=== PATIENT | male | born 1955 | race Caucasian/White ===

== ENCOUNTER 2021-02-11 10:17 | Emergency (ER) | payer OTHER, MEDICARE ==
[2021-02-11] MEDS ORDERED: Albuterol/Ipratropium 3.0-0.5 MG/3 ML Neb Soln ONE (10:24)
[2021-02-11 10:27] VITALS: BP 189/81; PULSE 114
[2021-02-11] MEDS ORDERED: Nitroglycerin/D5W 25 MG/250 ML BOTTLE ONE (10:27)
[2021-02-11] MEDS ORDERED: Nitroglycerin 0.4 MG Tab.SL ONE (10:27)
[2021-02-11] MEDS ORDERED: Nitroglycerin/D5W 25 MG/250 ML BOTTLE IV SCH (10:30)
[2021-02-11] MEDS ORDERED: Furosemide 20 MG/2 ML VIAL IVPUSH ONE (10:39)
[2021-02-11] MEDS ORDERED: Morphine 4 MG/ML Syringe IVPUSH ONE (10:46)
[2021-02-11] MEDS ORDERED: Morphine 4 MG/ML Syringe ONE (10:47)
--- NOTE | 2021-02-11 10:56 | CR ---
Chest: Portable view of the chest was obtained. Comparison: No prior chest imaging is available. Diffuse increased density is seen throughout both sides of the chest. Heart size and mediastinum are normal. Right-sided infusion port is seen. Bony structures show nothing acute. Impression: 1. Diffuse increased density on both sides of the chest. Findings could represent diffuse pulmonary vascular congestion as well as severe COVID pneumonia if patient has correlating symptoms. Other diffuse pneumonia is also within the differential. Diagnostic code #3
[2021-02-11] MEDS ORDERED: cefTRIAXone 2 GM in Sodium Chloride 0.9% 100 ML IV SCH (11:00)
--- NOTE | 2021-02-11 11:16 | EDM.PDOC ---
ED HPI GENERAL MEDICAL PROBLEM - General Chief Complaint: Respiratory Problem Stated Complaint: froilan amb Time Seen by Provider: 02/11/21 10:17 - History of Present Illness INITIAL COMMENTS - FREE TEXT/NARRATIVE: 65-year-old male brought in with severe respiratory distress and hypoxia by EMS. The patient was in route from [facility] to the [facility] in [facility] for a second opinion on his cancer. The patient is currently getting chemotherapy for what sounds like end-stage liver and pancreatic cancer. It is uncertain what the primary is. They have been told by oncology that they have no long-term cure options and they may be able to shrink the tumor up with chemotherapy and slow it down a little bit which is what they have done. Currently the trip went from 13 cm tumor to a 8 mm tumor. The patient has had "flash pulmonary edema" associated with chemotherapy in the past however the patient has not had chemotherapy in 3 weeks. The patient did not take his Lasix today normally takes 40 mg daily because of the road trip. He also did not bring his oxygen because he did not need it. Has noticed increased edema in his lower extremities over the last several days. EMS picked up the patient as it was no longer he was no longer able to breathe on his own. They attempted BiPAP and did not have much success getting his O2 saturation out of the 70s. He denies chest pain with this. Upon arrival here the patient adamantly denies wanting a breathing tube or put on mechanical ventilation. He did consent to continued BiPAP support. - Related Data Allergies Allergy/AdvReac Type Severity Reaction Status Date / Time No Known Allergies Allergy Verified 02/11/21 10:27 Home Meds: Home Meds Aspirin 325 mg PO DAILY 09/25/20 [History] Furosemide 60 mg PO DAILY 09/25/20 [History] Insulin Degludec [Tresiba] 10 unit SQ BEDTIME 09/25/20 [History] Lansoprazole [Prevacid] 30 mg PO DAILY PRN 09/25/20 [History] Metoprolol Succinate 50 mg PO DAILY 09/25/20 [History] Potassium Chloride 20 meq PO DAILY 09/25/20 [History] atorvaSTATin [Lipitor] 10 mg PO DAILY 09/25/20 [History] Fluticasone Propionate [Flonase Allergy Relief] 1 spray NASBOTH DAILY PRN 10/27/20 [History] Insulin Aspart [NovoLOG] 1 injection SUBCUT ASDIRECTED 10/27/20 [History] Hydrocodone/Acetaminophen [Vicodin Hp 10-300 mg Tablet] 1 each PO Q6H PRN #6 tablet 10/29/20 [Rx] traZODone 100 mg PO BEDTIME 01/22/21 [History] levoFLOXacin [Levaquin] 750 mg PO Q24H 5 Days #5 tablet 01/23/21 [Rx] Spironolactone [Aldactone] 25 mg PO DAILY #30 tab 02/11/21 [Rx] Past Medical History HEENT History: Reports: Other (See Below) Other HEENT History: wears glasses, top and bottom dentures Cardiovascular History: Reports: High Cholesterol, Hypertension, PVD, Stents Respiratory History: Reports: None Other Respiratory History: 45 year smoking hx, presently smokes alittle over 1 PPD Gastrointestinal History: Reports: GERD Genitourinary History: Reports: None Musculoskeletal History: Reports: None Neurological History: Reports: None Psychiatric History: Reports: None Endocrine/Metabolic History: Reports: Diabetes, Type II, Obesity/BMI 30+ Hematologic History: Reports: None Immunologic History: Reports: None Oncologic (Cancer) History: Reports: Liver Dermatologic History: Reports: None - Infectious Disease History Infectious Disease History: Reports: Chicken Pox, Measles, Mumps - Past Surgical History Head Surgeries/Procedures: Reports: None HEENT Surgical History: Reports: None Cardiovascular Surgical History: Reports: Vascular Surgery Other Cardiovascular Surgeries/Procedures: left femerol popiteal bypass, stent placement to right leg Respiratory Surgical History: Reports: None GI Surgical History: Reports: None Male Surgical History: Reports: None Endocrine Surgical History: Reports: None Neurological Surgical History: Reports: None Musculoskeletal Surgical History: Reports: None Oncologic Surgical History: Reports: None Dermatological Surgical History: Reports: None Social & Family History - Family History Family Medical History: No Pertinent Family History - Tobacco Use Tobacco Use Status *Q: Current Status Unknown - Caffeine Use Caffeine Use: Reports: Coffee, Energy Drinks, Soda Caffeine Use Comment: 3-4 cups of coffee daily - Recreational Drug Use Recreational Drug Use: No ED ROS GENERAL - Review of Systems Review Of Systems: See Below Constitutional: Reports: No Symptoms HEENT: Reports: No Symptoms Respiratory: Reports: Shortness of Breath. Denies: Cough, Sputum Cardiovascular: Reports: Dyspnea on Exertion, Edema. Denies: Chest Pain Endocrine: Reports: No Symptoms GI/Abdominal: Reports: No Symptoms : Reports: No Symptoms Musculoskeletal: Reports: No Symptoms Neurological: Reports: No Symptoms ED EXAM, GENERAL - Physical Exam Exam: See Below Exam Limited By: Other (Shortness of breath and being on BiPAP but he answers simple questions without difficulty) General Appearance: Moderate Distress (Secondary to hypoxia breathing difficulties) Head: Atraumatic, Normocephalic Neck: Normal Inspection, Supple, Non-Tender, Full Range of Motion. No: Lymphadenopathy (L), Lymphadenopathy (R) Respiratory/Chest: Respiratory Distress, Crackles. No: No Respiratory Distress, Normal Breath Sounds Cardiovascular: Regular Rate, Rhythm, No Murmur, Other (Severe edema in bilateral lower extremities) GI/Abdominal: Normal Bowel Sounds, Soft, Non-Tender Back Exam: Normal Inspection. No: CVA Tenderness (L), CVA Tenderness (R) Extremities: Pedal Edema (Severe extending up the legs) Course - Vital Signs Last Recorded V/S: Last Vital Signs Temp 36.2 C 02/11/21 10:21 Pulse 114 H 02/11/21 10:21 Resp 34 H 02/11/21 10:21 BP 189/81 H 02/11/21 10:21 Pulse Ox 100 02/11/21 13:06 - Orders/Labs/Meds Orders: Active Orders 24 hr Category Date Time Status RT BiPAP/CPAP [RC] ASDIRECTED Care 02/11/21 11:04 Active BLOOD CULTURE [MREF] Stat Lab 02/11/21 10:35 Received BLOOD CULTURE [MREF] Stat Lab 02/11/21 10:50 Received Nitroglycerin/D5W [Nitroglycerin 25 MG/D5W 250 ML] Med 02/11/21 10:30 Active 25 mg in 250 ml IV TITRATE cefTRIAXone [Rocephin] 2 gm Med 02/11/21 11:00 Active Sodium Chloride 0.9% [Normal Saline] 100 ml IV Q24H Blood Culture x2 Reflex Set [OM.PC] Stat Oth 02/11/21 10:29 Ordered Medication Orders Nitroglycerin/Dextrose (Nitroglycerin 25 Mg/D5w 250 Ml) 25 mg in 250 mls @ 3 mls/hr IV TITRATE ORI; Protocol Last Titration: 02/11/21 11:47 Dose: 0 mcg/min, 0 mls/hr Documented by: Titration: 02/11/21 11:25 Dose: 5 mcg/min, 3 mls/hr Documented by: Titration: 02/11/21 11:15 Dose: 10 mcg/min, 6 mls/hr Documented by: Titration: 02/11/21 10:41 Dose: 15 mcg/min, 9 mls/hr Documented by: Titration: 02/11/21 10:37 Dose: 10 mcg/min, 6 mls/hr Documented by: Admin: 02/11/21 10:32 Dose: 5 mcg/min, 3 mls/hr Documented by: HERMMIC Ceftriaxone Sodium 2 gm/ (Sodium Chloride) 100 mls @ 200 mls/hr IV Q24H ORI Last Admin: 02/11/21 11:48 Dose: 200 mls/hr Documented by: HERMMIC Labs: Laboratory Tests 02/11/21 02/11/21 02/11/21 Range/Units 10:35 10:35 10:35 WBC 5.47 (4.23-9.07) K/mm3 RBC 3.26 L (4.63-6.08) M/mm3 Hgb 9.8 L (13.7-17.5) gm/dl Hct 32.5 L (40.1-51.0) % MCV 99.7 H (79.0-92.2) fl MCH 30.1 (25.7-32.2) pg MCHC 30.2 L (32.2-35.5) g/dl RDW Std Deviation 91.0 H (35.1-43.9) fL Plt Count 192 (163-337) K/mm3 MPV 12.0 (9.4-12.3) fl Neut % (Auto) 45.9 (34.0-67.9) % Lymph % (Auto) 28.5 (21.8-53.1) % Monroe % (Auto) 19.6 H (5.3-12.2) % Eos % (Auto) 4.2 (0.8-7.0) Baso % (Auto) 1.3 H (0.1-1.2) % Neut # (Auto) 2.51 (1.78-5.38) K/mm3 Lymph # (Auto) 1.56 (1.32-3.57) K/mm3 Monroe # (Auto) 1.07 H (0.30-0.82) K/mm3 Eos # (Auto) 0.23 (0.04-0.54) K/mm3 Baso # (Auto) 0.07 (0.01-0.08) K/mm3 PT 11.9 (9.7-12.0) SECONDS INR 1.11 APTT 23.4 (21.7-31.4) SECONDS Sodium 136 (136-145) mEq/L Potassium 3.5 (3.5-5.1) mEq/L Chloride 101 (98-107) mEq/L Carbon Dioxide 26 (21-32) mEq/L Anion Gap 12.5 (5-15) BUN 12 (7-18) mg/dL Creatinine 0.9 (0.7-1.3) mg/dL Est Cr Clr Drug Dosing 80.74 mL/min Estimated GFR (MDRD) > 60 (>60) mL/min BUN/Creatinine Ratio 13.3 L (14-18) Glucose 233 H (70-99) mg/dL Lactic Acid (0.4-2.0) mmol/L Calcium 8.4 L (8.5-10.1) mg/dL Total Bilirubin 0.8 (0.2-1.0) mg/dL AST 55 H (15-37) U/L ALT 35 (16-63) U/L Alkaline Phosphatase 173 H (46-116) U/L Troponin I < 0.017 (0.00-0.056) ng/mL NT-Pro-B Natriuret Pep (0-125) pg/mL Total Protein 7.5 (6.4-8.2) g/dl Albumin 3.3 L (3.4-5.0) g/dl Globulin 4.2 gm/dL Albumin/Globulin Ratio 0.8 L (1-2) SARS-CoV-2 RNA (KIMANI) (NEGATIVE) 02/11/21 02/11/21 02/11/21 Range/Units 10:35 10:50 13:37 WBC (4.23-9.07) K/mm3 RBC (4.63-6.08) M/mm3 Hgb (13.7-17.5) gm/dl Hct (40.1-51.0) % MCV (79.0-92.2) fl MCH (25.7-32.2) pg MCHC (32.2-35.5) g/dl RDW Std Deviation (35.1-43.9) fL Plt Count (163-337) K/mm3 MPV (9.4-12.3) fl Neut % (Auto) (34.0-67.9) % Lymph % (Auto) (21.8-53.1) % Monroe % (Auto) (5.3-12.2) % Eos % (Auto) (0.8-7.0) Baso % (Auto) (0.1-1.2) % Neut # (Auto) (1.78-5.38) K/mm3 Lymph # (Auto) (1.32-3.57) K/mm3 Monroe # (Auto) (0.30-0.82) K/mm3 Eos # (Auto) (0.04-0.54) K/mm3 Baso # (Auto) (0.01-0.08) K/mm3 PT (9.7-12.0) SECONDS INR APTT (21.7-31.4) SECONDS Sodium (136-145) mEq/L Potassium (3.5-5.1) mEq/L Chloride (98-107) mEq/L Carbon Dioxide (21-32) mEq/L Anion Gap (5-15) BUN (7-18) mg/dL Creatinine (0.7-1.3) mg/dL Est Cr Clr Drug Dosing mL/min Estimated GFR (MDRD) (>60) mL/min BUN/Creatinine Ratio (14-18) Glucose (70-99) mg/dL Lactic Acid 1.1 (0.4-2.0) mmol/L Calcium (8.5-10.1) mg/dL Total Bilirubin (0.2-1.0) mg/dL AST (15-37) U/L ALT (16-63) U/L Alkaline Phosphatase (46-116) U/L Troponin I (0.00-0.056) ng/mL NT-Pro-B Natriuret Pep 1988 H (0-125) pg/mL Total Protein (6.4-8.2) g/dl Albumin (3.4-5.0) g/dl Globulin gm/dL Albumin/Globulin Ratio (1-2) SARS-CoV-2 RNA (KIMANI) Negative (NEGATIVE) Meds: Medications Generic Name Dose Route Start Last Admin Trade Name Freq PRN Reason Stop Dose Admin Nitroglycerin/Dextrose 25 mg in 250 mls @ 3 mls/hr 02/11/21 10:30 02/11/21 11:47 Nitroglycerin 25 Mg/D5w 250 Ml IV 0 mcg/min TITRATE ORI 0 mls/hr Titration Protocol 5 MCG/MIN Ceftriaxone Sodium 2 gm/ 100 mls @ 200 mls/hr 02/11/21 11:00 02/11/21 11:48 Sodium Chloride IV 200 mls/hr Q24H ORI Administration Discontinued Medications Generic Name Dose Route Start Last Admin Trade Name Mykelq PRN Reason Stop Dose Admin Albuterol/Ipratropium Confirm 02/11/21 10:24 Albuterol/Ipratropium 3.0-0.5 Mg/3 Ml Neb Soln Administered 02/11/21 10:25 Dose 3 ml .ROUTE .STK-MED ONE Furosemide 60 mg 02/11/21 10:39 02/11/21 10:47 Furosemide 20 Mg/2 Ml Vial IVPUSH 02/11/21 10:40 60 mg ONETIME ONE Administration Nitroglycerin/Dextrose Confirm 02/11/21 10:27 02/11/21 10:43 Nitroglycerin 25 Mg/D5w 250 Ml Administered 02/11/21 10:28 Not Given Dose 25 mg in 250 mls @ as directed .ROUTE .STK-MED ONE Morphine Sulfate 4 mg 02/11/21 10:46 02/11/21 10:49 Morphine 4 Mg/Ml Syringe IVPUSH 02/11/21 10:47 4 mg ONETIME ONE Administration Morphine Sulfate Confirm 02/11/21 10:47 02/11/21 11:22 Morphine 4 Mg/Ml Syringe Administered 02/11/21 10:48 Not Given Dose 4 mg .ROUTE .STK-MED ONE Nitroglycerin Confirm 02/11/21 10:27 Nitroglycerin 0.4 Mg Tab.Sl Administered 02/11/21 10:28 Dose 0.8 mg .ROUTE .STK-MED ONE Potassium Chloride 20 meq 02/11/21 16:35 Potassium Chloride 20 Meq Tab.Er PO 02/11/21 16:36 ONETIME ONE - Re-Assessments/Exams Free Text/Narrative Re-Assessment/Exam: 02/11/21 10:56 The patient presents to the emergency room in respiratory extremis. Patient has a history of "flash pulmonary edema" the patient is getting chemotherapy right now for a combination of pancreatic liver cancer they are unsure what the primary actually is. The patient's is driving him to [facility] for a second opinion when he developed severe shortness of breath. EMS was called to intercept and bring him to the hospital. Patient has a complicated medical history is diabetic is got vascular disease he had stents in his heart and the way I understand in his legs. Over the last several days they have noticed increased edema in the lower extremities. The patient was attempted on BiPAP with minimal success by EMS we are reattempting this along with IV nitro morphine. The patient is alert and oriented and denies intubation. When he is advised that he may not survive this episode he still does not want intubation. At this time we have no intensive care hospital beds here nor does [place]. I will check with [facility] but it is my understanding they are on diversion. The patient's oncologist is at the [facility]. 02/11/21 11:20 The patient is doing better on a nitro drip BiPAP O2 saturation in the mid 90s. [facility] is excepting no new patients at this time because they are over capacity. 02/11/21 16:41 The patient has continued to improve during his stay here antiemetic it made it evident some time ago that he does not really want to be admitted he would rather go home. As he is feeling much better at this point he is on supplemental oxygen 3 L per nasal cannula and is doing fine I given him 60 mg of IV Lasix and this is helped a little bit but he has not had a profound response as it turns out he is taking Lasix 40 mg daily at home and potassium 20 mEq daily. I will add spironolactone 25 mg daily we will need to watch his potassium. Patient understands in no uncertain terms that he needs to follow-up with his regular healthcare provider on Tuesday of this week or Tuesday of next week for recheck of this. Departure - Departure Time of Disposition: 16:42 Disposition: Home, Self-Care 01 Clinical Impression: Heart failure, Pulmonary edema - Discharge Information Referrals: PCP,Not In Area [Primary Care Provider] - Forms: ED Department Discharge Additional Instructions: Return to the emergency room with any questions problems or worsening symptoms. Follow-up with your regular healthcare provider on Tuesday of this week or Tuesday of next week to have recheck of your overall condition and to recheck your potassium as we have made some changes. I have sent a electronic prescription for spironolactone 25 mg 1 daily to the [place] pharmacy in [place] start this tomorrow. Use the oxygen at 3 L per nasal cannula return the bottle to the [facility] in [place]. Then use your home O2 at 3 L per nasal cannula when you arrive home. Sepsis Event Note (ED) - Evaluation Sepsis Screening Result: No Definite Risk - Focused Exam Vital Signs: Vital Signs Temp Pulse Resp BP Pulse Ox Pulse Ox 02/11/21 13:06 100 02/11/21 10:21 36.2 C 114 H 34 H 189/81 H 64 L - My Orders Last 24 Hours: My Active Orders 02/11/21 10:29 Blood Culture x2 Reflex Set [OM.PC] Stat 02/11/21 10:30 Nitroglycerin/D5W [Nitroglycerin 25 MG/D5W 250 ML] 25 mg in 250 ml IV TITRATE 02/11/21 10:35 BLOOD CULTURE [MREF] Stat 02/11/21 10:50 BLOOD CULTURE [MREF] Stat 02/11/21 11:00 cefTRIAXone [Rocephin] 2 gm Sodium Chloride 0.9% [Normal Saline] 100 ml IV Q24H 02/11/21 11:04 RT BiPAP/CPAP [RC] ASDIRECTED - Assessment/Plan Last 24 Hours: My Active Orders 02/11/21 10:29 Blood Culture x2 Reflex Set [OM.PC] Stat 02/11/21 10:30 Nitroglycerin/D5W [Nitroglycerin 25 MG/D5W 250 ML] 25 mg in 250 ml IV TITRATE 02/11/21 10:35 BLOOD CULTURE [MREF] Stat 02/11/21 10:50 BLOOD CULTURE [MREF] Stat 02/11/21 11:00 cefTRIAXone [Rocephin] 2 gm Sodium Chloride 0.9% [Normal Saline] 100 ml IV Q24H 02/11/21 11:04 RT BiPAP/CPAP [RC] ASDIRECTED
[2021-02-11] MEDS ORDERED: Potassium Chloride 20 MEQ Tab.ER PO ONE (16:35)
== END 2021-02-11 17:10 | disposition home or self-care (01) ==
LOC: JD.ED 10:17
DX: I11.0 Hypertensive heart disease with heart failure (principal); I50.1 Left ventricular failure, unspecified; E78.00 Pure hypercholesterolemia, unspecified; K21.9 Gastro-esophageal reflux disease without esophagitis; E11.9 Type 2 diabetes mellitus without complications; E66.9 Obesity, unspecified; Z68.30 Body mass index [BMI] 30.0-30.9, adult; Z95.5 Presence of coronary angioplasty implant and graft; Z20.822 Contact with and (suspected) exposure to COVID-19; Z79.01 Long term (current) use of anticoagulants
CPT/HCPCS: 36415; 71045; 80053; 83605; 83880; 84484; 85025; 85610; 85730; 87040; 96365; 96367; 96375; 99285; A9270; J0696; J1642; J1940; J2270; J3490; U0002; 99284